=== PATIENT | female | born 1985 | race Caucasian/White ===

== ENCOUNTER 2022-12-21 17:08 | Emergency (ER) | payer OTHER, SELFPAY ==
[2022-12-21] VITALS (9 sets, daily range): BP systolic 100–129; BP diastolic 55–81; PULSE 72–105; RESP 13–24; TEMP 36.9; O2SAT 95–99; BMI 23.9
--- NOTE | 2022-12-21 17:41 | DI.RAD.S_ITS ---
PROCEDURE: XR CHEST 1V INDICATIONS: suspected sepsis TECHNIQUE: One view of the chest was acquired. COMPARISON: None. FINDINGS: Surgical changes and devices: None. Lungs and pleura: Lungs are clear. No pleural effusions or pneumothorax. Mediastinum: Mediastinal contours appear normal. Heart size is normal. Bones and chest wall: No suspicious bony lesions. Overlying soft tissues appear unremarkable. IMPRESSION: No acute cardiopulmonary pathology. Dictated by: Checo Tellez M.D. on 12/21/2022 at 18:20 Approved by: Checo Tellez M.D. on 12/21/2022 at 18:20
[2022-12-21] MEDS: SODIUM CHLORIDE 0.9% 1,000 ML 1000 ML IV (17:49)
[2022-12-21 17:52] LABS: Add Manual Diff / Slide Review NO; Basophils Absolute Auto 200 /uL (0-100); Basophils Percent Auto 1.4 % (0-2); Eosinophils Absolute Auto 100 /uL (0-450); Eosinophils Percent Auto 0.6 % (2-4); Hematocrit 39.6 % (36-46); Hemoglobin 13.7 g/dL (12.0-16.0); INR 1.1 (0.9-1.3); Lymphocytes Absolute Auto 800 /uL (1100-4500); Lymphocytes Percent Auto 6.1 % (25-40); Mean Corpuscular HGB Conc 34.5 % (30-36); Mean Corpuscular Hemoglobin 29.6 PG (26-34); Mean Corpuscular Volume 85.8 fL (80-100); Monocytes Absolute Auto 1000 /uL (0-900); Monocytes Percent Auto 7.3 % (3-14); Neutrophils Absolute Auto 11200 /uL (1500-7000); Neutrophils Percent Auto 84.6 % (50-75); Platelet Count 215 X10^3/uL (150-400); Prothrombin Time 12.3 SECONDS (10.1-12.7); Red Blood Cell Count 4.62 X10^6/uL (4.0-5.2); Red Cell Distribution Width 12.9 % (11.6-14.8); White Blood Cell Count 13.2 X10^3/uL (4.5-11.0)
[2022-12-21 17:54] LABS: PTT Partial Thromboplastin Tim 31 SECONDS (26-36)
[2022-12-21 17:57] LABS: Alanine Aminotransferase 20 IU/L (<35); Albumin 4.6 g/dL (3.5-5.0); Albumin Globulin Ratio 1.4 (1.0-2.8); Alkaline Phosphatase 59 U/L (38-126); Aspartate Aminotransferase 22 IU/L (14-36); BUN Creatinine Ratio 18.6 (6-22); Blood Urea Nitrogen 11 mg/dL (7-17); Calcium 9.5 mg/dL (8.4-10.2); Carbon Dioxide 26 mmol/L (22-32); Chloride 102 mmol/L (98-107); Estimated Glomerular Filt Rate > 60 mL/min (>60); Globulin 3.3 g/dL (1.7-4.1); Glucose 109 mg/dL (70-100); HEMOLYSIS < 15 (0-50); Lipase 32 U/L (23-300); Potassium 3.8 mmol/L (3.4-5.1); Sodium 137 mmol/L (137-145); Total Protein 7.9 g/dL (6.3-8.2)
[2022-12-21 18:13] LABS: Procalcitonin < 0.03 ng/mL (<0.5)
--- NOTE | 2022-12-21 18:38 | ED.GENADULT ---
HPI - General Adult General Chief complaint: Abdominal Pain Stated complaint: ABD PAIN Time Seen by Provider: 12/21/22 18:10 Source: patient Mode of arrival: Ambulatory History of Present Illness HPI narrative: Otherwise healthy 37-year-old woman who presents with 48 hours of left lower quadrant/flank pain getting persistently worse to the point that she is having trouble standing straight. Low-grade fevers today, no vaginal discharge, normal bowel movement this morning. She is not having dysuria frequency or urgency has not noted hematuria. There is no vaginal discharge. Last menstrual period was a week ago and her has a vasectomy. She is never had similar pain. She is not vomiting there is no upper abdominal pain, shortness is breath and no nausea. Related Data Previous Rx's Medication Instructions Recorded amoxicillin 875 mg-potassium 1 tab PO BID #20 tabs 12/21/22 clavulanate 125 mg tablet oxycodone-acetaminophen 5 mg-325 1 tab PO Q6H PRN pain #10 tabs 12/21/22 mg tablet Allergies Allergy/AdvReac Type Severity Reaction Status Date / Time Sulfa (Sulfonamide Allergy Intermediate Hives Verified 12/21/22 17:40 Antibiotics) Review of Systems Review of Systems Narrative: Pertinent positive and negative findings as per HPI Patient History Social History Smoking Status: Never smoker Smoking Status: Never smoker alcohol intake frequency: a few times a month Substance Use Type: marijuana Exam Initial Vital Signs Initial Vital Signs: Vital Signs Temperature 98.5 F 12/21/22 17:15 Pulse Rate 105 H 12/21/22 17:15 Respiratory Rate 18 12/21/22 17:15 Blood Pressure 129/81 12/21/22 17:15 Pulse Oximetry 99 12/21/22 17:15 Oxygen Delivery Method Room Air 12/21/22 17:15 General: Healthy appearing, in significant distress secondary to pain. Able to give a complete and coherent history. Well-nourished well-developed HEENT: Moist mucous membranes, normal sclera with reactive pupils, Respiratory: Lungs are clear to auscultation, no wheezing no rales no rhonchi. Full and symmetrical air movement Cardiac: Regular rate and rhythm no murmurs no bruits Abdomen: Soft, tender LLQ into L flank without rebound. Genital: No vaginal discharge, cervical motion tenderness or adnexal tenderness. Pain is clearly more lateral to adnexa on the left and likely either bowel or kidney. Skin: Warm and dry, no rashes Neurologic: Grossly neurologically intact with no obvious asymmetries or abnormalities Extremities: No trauma, well perfused Psych: Cooperative, appropriate insight and affect Course Orders Ordered: ED Orders 12/21/22 17:28 Blood Culture Stat COVID19 -Nasal RAPID Stat Complete Blood Count AUTO DIFF Stat Comprehensive Metabolic Panel Stat Lactate (Lactic Acid) Stat Lipase Stat PTT Partial Thromboplastin Nate Stat Procalcitonin Stat Prothrombin Time INR Stat 12/21/22 17:41 XR chest 1V Stat RT Consult Eval and Treat NOW 12/21/22 18:45 CT abdomen pelvis w con Stat Hydromorphone HCl (Hydromorphone 0.5 Mg Inj) 0.5 mg IV Q15MIN PRN PRN Reason: Pain, Last Admin: 12/21/22 19:10 Dose: 0.5 mg Documented By: ROHIT Ondansetron HCl (Ondansetron 4 Mg Odt) 4 mg PO NOW PRN PRN Reason: Nausea And Vomiting Ondansetron HCl (Ondansetron 4 Mg/2 Ml Inj) 4 mg IV NOW PRN PRN Reason: Nausea And Vomiting Discontinued Medications Sodium Chloride (Normal Saline 0.9%) 1,000 mls @ 1,000 mls/hr IV BOLUS ONE Stop: 12/21/22 18:39 Last Infusion: 12/21/22 18:49 Dose: 0 mls/hr Documented By: Admin: 12/21/22 17:49 Dose: 1,000 mls/hr Documented By: RENETTA Ondansetron HCl (Ondansetron 4 Mg/2 Ml Inj) 4 mg IV NOW ONE Stop: 12/21/22 18:46 Last Admin: 12/21/22 19:10 Dose: 4 mg Documented By: ROHIT Vital Signs Vital signs: Vital Signs - 8 hr 12/21/22 17:15 12/21/22 18:50 12/21/22 18:51 Temperature 98.5 F Pulse Rate 105 H 82 77 Respiratory Rate 18 14 Blood Pressure 129/81 113/60 Pulse Oximetry 99 97 Oxygen Delivery Method Room Air 12/21/22 18:51 12/21/22 19:40 12/21/22 19:07 Temperature Pulse Rate 88 74 Respiratory Rate 18 Blood Pressure 113/60 117/75 Pulse Oximetry 97 98 Oxygen Delivery Method 12/21/22 19:30 12/21/22 19:39 12/21/22 19:39 Temperature Pulse Rate 77 84 Respiratory Rate 24 21 Blood Pressure 117/75 Pulse Oximetry 95 97 Oxygen Delivery Method 12/21/22 20:00 12/21/22 20:00 Temperature Pulse Rate 73 Respiratory Rate 13 Blood Pressure 100/55 L Pulse Oximetry 96 Oxygen Delivery Method Medical Decision Making Lab Data 12/21/22 17:28 12/21/22 17:28 Labs: Lab Results 12/21/22 12/21/22 12/21/22 Range/Units 17:28 17:28 17:28 WBC 13.2 H (4.5-11.0) X10^3/uL RBC 4.62 (4.0-5.2) X10^6/uL Hgb 13.7 (12.0-16.0) g/dL Hct 39.6 (36-46) % MCV 85.8 (80-100) fL MCH 29.6 (26-34) PG MCHC 34.5 (30-36) % RDW 12.9 (11.6-14.8) % Plt Count 215 (150-400) X10^3/uL Neut % (Auto) 84.6 H (50-75) % Lymph % (Auto) 6.1 L (25-40) % Cecil % (Auto) 7.3 (3-14) % Eos % (Auto) 0.6 L (2-4) % Baso % (Auto) 1.4 (0-2) % Neut # (Auto) 79615 H (3602-7447) /uL Lymph # (Auto) 800 L (4235-6167) /uL Cecil # (Auto) 1000 H (0-900) /uL Eos # (Auto) 100 (0-450) /uL Baso # (Auto) 200 H (0-100) /uL PT 12.3 (10.1-12.7) SECONDS INR 1.1 (0.9-1.3) APTT 31 (26-36) SECONDS Sodium 137 (137-145) mmol/L Potassium 3.8 (3.4-5.1) mmol/L Chloride 102 (98-107) mmol/L Carbon Dioxide 26 (22-32) mmol/L BUN 11 (7-17) mg/dL Creatinine 0.59 (0.52-1.04) mg/dL Estimated GFR > 60 (>60) mL/min BUN/Creatinine Ratio 18.6 (6-22) Glucose 109 H (70-100) mg/dL Lactate (0.7-2.1) mmol/L Calcium 9.5 (8.4-10.2) mg/dL Total Bilirubin 1.0 (0.2-1.3) mg/dL AST 22 (14-36) IU/L ALT 20 (<35) IU/L Alkaline Phosphatase 59 (38-126) U/L Total Protein 7.9 (6.3-8.2) g/dL Albumin 4.6 (3.5-5.0) g/dL Globulin 3.3 (1.7-4.1) g/dL Albumin/Globulin Ratio 1.4 (1.0-2.8) Lipase 32 (23-300) U/L Procalcitonin < 0.03 (<0.5) ng/mL SARS-CoV-2 (PCR) (Negative) 12/21/22 12/21/22 Range/Units 17:28 17:28 WBC (4.5-11.0) X10^3/uL RBC (4.0-5.2) X10^6/uL Hgb (12.0-16.0) g/dL Hct (36-46) % MCV (80-100) fL MCH (26-34) PG MCHC (30-36) % RDW (11.6-14.8) % Plt Count (150-400) X10^3/uL Neut % (Auto) (50-75) % Lymph % (Auto) (25-40) % Cecil % (Auto) (3-14) % Eos % (Auto) (2-4) % Baso % (Auto) (0-2) % Neut # (Auto) (9812-1813) /uL Lymph # (Auto) (5328-0242) /uL Cecil # (Auto) (0-900) /uL Eos # (Auto) (0-450) /uL Baso # (Auto) (0-100) /uL PT (10.1-12.7) SECONDS INR (0.9-1.3) APTT (26-36) SECONDS Sodium (137-145) mmol/L Potassium (3.4-5.1) mmol/L Chloride (98-107) mmol/L Carbon Dioxide (22-32) mmol/L BUN (7-17) mg/dL Creatinine (0.52-1.04) mg/dL Estimated GFR (>60) mL/min BUN/Creatinine Ratio (6-22) Glucose (70-100) mg/dL Lactate 1.0 (0.7-2.1) mmol/L Calcium (8.4-10.2) mg/dL Total Bilirubin (0.2-1.3) mg/dL AST (14-36) IU/L ALT (<35) IU/L Alkaline Phosphatase (38-126) U/L Total Protein (6.3-8.2) g/dL Albumin (3.5-5.0) g/dL Globulin (1.7-4.1) g/dL Albumin/Globulin Ratio (1.0-2.8) Lipase (23-300) U/L Procalcitonin (<0.5) ng/mL SARS-CoV-2 (PCR) Negative (Negative) Point of Care Testing Test Results Negative Urine Dip Bedside Urine Glucose Negative Bedside Urine Bilirubin - Negative Bedside Urine Ketone +/- 5 Urine Specific [place] 1.010 Bedside Urine Occult Blood - Negative Bedside Urine pH 8 Bedside Urine Protein - Negative Bedside Urine Urobilinogen - Negative Bedside Urine Nitrite - Negative Bedside Urine Leukocytes - Negative Esterase Point of care testing: Point of Care Testing Test Results Negative Urine Dip Bedside Urine Glucose Negative Bedside Urine Bilirubin - Negative Bedside Urine Ketone +/- 5 Urine Specific [place] 1.010 Bedside Urine Occult Blood - Negative Bedside Urine pH 8 Bedside Urine Protein - Negative Bedside Urine Urobilinogen - Negative Bedside Urine Nitrite - Negative Bedside Urine Leukocytes - Negative Esterase [facility] Narrative Medical decision making narrative: CC: 48 hours of right lower quadrant pain Data collected from: patient, Differential considered: Diverticulitis, pyelonephritis, kidney stone, ovarian torsion, pelvic inflammatory disease Exam documented above, pertinent findings include: Severe left lower quadrant pain that does not appear to be pelvic pain or adnexal pain. No rebound or guarding. Lab Test results independently reviewed as above. Pertinent findings: CBC shows mild leukocytosis at 13.2 with left shift. No significant anemia Chemistries are reassuring with no acute electrolyte abnormality Procalcitonin is within normal limits Lipase is not elevated Urine test is negative Urine point of care testing is unremarkable Imaging studies independently reviewed: Chest x-ray is unremarkable CT scan suggest acute diverticulitis with no perforation or abscess. No renal stones, pyelonephritis. She has an incidentally noted hepatic cyst Treatments: Parenteral fluids, narcotics and antiemetics. Oral Augmentin is started in the emergency department Re-evaluations: Patient is re-evaluated after the CT scan and pain medication. She is feeling significantly improved. Clearly does not have an acute surgical abdomen Discussion: 37-year-old woman with acute diverticulitis without abscess or complication. No evidence of sepsis. She is able to eat and drink and will be safe for discharge home with Augmentin for 10 days. We talked about the importance of avoiding constipation with diverticulitis particularly in light of the fact that I am going to send her home with some Percocet to help pain control. Reviewed signs and symptoms of worsening issues and she is safe for discharge at this time. Discharge Plan Departure Patient Disposition: Home Clinical Impression: Diverticulitis Instructions: Diverticulitis Activity Restrictions/Additional Instructions: Thank you for coming in today Your workup shows you have acute diverticulitis causing your left lower abdominal pain. There is no evidence of sepsis, kidney stones, kidney infection, uterine or ovary abnormalities. Your CT scan also showed a benign cyst in your liver. It is nothing that you need to worry about, it is common to find small cysts and such with CT scanning. For the acute diverticulitis I am going to have you complete a 10 day course of Augmentin. Prescriptions [facility] [place] I am also going to give you a prescription for Percocet to use for pain control over the 1st couple of days. Percocet is a narcotic, can be addictive and will cause constipation. Constipation will make diverticulitis worse so it is important that you use additional magnesium, other stool softener and drink plenty of water to avoid constipation issues. If you find that you are getting worse or develop any new symptoms, please feel free to return to the emergency department for further evaluation. Prescriptions: New oxycodone-acetaminophen 5-325 mg tablet 1 tab PO Q6H PRN (Reason: pain) Qty: 10 0RF amoxicillin-pot clavulanate 875-125 mg tablet 1 tab PO BID Qty: 20 0RF Stand Alone Forms: Patient Portal/API
--- NOTE | 2022-12-21 18:45 | DI.CT.S_ITS ---
PROCEDURE: CT ABDOMEN PELVIS W CON INDICATIONS: LLQ abd pain TECHNIQUE: After the administration of intravenous contrast, axial sections acquired from the lung bases to the pubic symphysis. Coronal and sagittal reformats were performed. For radiation dose reduction, the following was used: automated exposure control, adjustment of mA and/or kV according to patient size. COMPARISON: None. FINDINGS: Image quality: Excellent. Lung bases: Unremarkable. Heart: No significant findings. ABDOMEN: Liver: 1.3 x 0.7 cm oval hypodensity involving posterior segment of right hepatic lobe series 2, image 24 likely represent benign process such as hepatic cyst. Gallbladder: Gallbladder is distended, no gallstones or gallbladder wall thickening. Biliary ducts: Unremarkable. Pancreas: Unremarkable. Spleen: Unremarkable. Adrenal Glands: Unremarkable. Kidneys and Ureters: Unremarkable. Stomach and Bowel: There is no bowel obstruction. No gastric or small bowel wall thickening. Significant mid to distal descending colon wall thickening is seen with pericolonic fat stranding. Colonic diverticulosis is seen. No abscess collection. No other area of abnormal colonic wall thickening. Peritoneum: No abnormal intraperitoneal fluid. No free air. Ventral Wall: No hernias. Abdominal Nodes: No retroperitoneal or mesenteric adenopathy by size criteria. Vessels: Aorta and inferior vena cava are normal in size. PELVIS: Pelvic Organs: Unremarkable. Bladder: Unremarkable. Pelvic Nodes: No enlarged lymph nodes. Miscellaneous: No hernias are seen. Bones: No suspicious bony lesions. No acute vertebral body compression fracture. IMPRESSION: 1. Finding is consistent with acute diverticulitis involving mid to distal descending colon. No signs of perforation. No abscess collection. No free fluid or free air. No bowel obstruction. 2. No obstructing renal stones or hydronephrosis. 3. Incidentally noted of hypodensity involving right hepatic lobe and likely represent benign process such as hepatic cyst or hemangioma. Dictated by: Checo Tellez M.D. on 12/21/2022 at 19:25 Approved by: Checo Tellez M.D. on 12/21/2022 at 19:28
[2022-12-21 18:53] LABS: COVID19 -Nasal RAPID Negative (Negative)
[2022-12-21] MEDS: HYDROMORPHONE 0.5 MG INJ IV (19:10)
[2022-12-21] MEDS: ONDANSETRON 4 MG/2 ML INJ IV (19:10)
[2022-12-21] MEDS: AMOXICILLIN/CLAV 875/125 MG 1 TAB PO (20:42)
[2022-12-21] MEDS: OXYCODONE/APAP 5/325 PREPACK 1 BOTTLE MISC (20:43)
== END 2022-12-21 20:51 | disposition home or self-care (01) ==
PROVIDERS: Emergency Medicine; Emergency Provider Emergency Medicine
DX: K57.92 Diverticulitis of intestine, part unspecified, without perforation or abscess without bleeding (principal); Z20.822 Contact with and (suspected) exposure to COVID-19
CPT/HCPCS: 36415; 71045; 74177; 80053; 81003; 81025; 83605; 83690; 84145; 85025; 85610; 85730; 87040; 87635; 96361; 96374; 96375; 99284; C9803; J1170; J2405; Q9967

== ENCOUNTER 2024-01-15 00:08 | Emergency (ER) | payer OTHER, SELFPAY ==
[2024-01-15 00:12] VITALS: BP 136/91; PULSE 82; RESP 16; TEMP 36.6; O2SAT 98; BMI 24.9
--- NOTE | 2024-01-15 00:56 | ED_ITS ---
HPI - Abdominal Pain General Chief Complaint: Abdominal Pain Stated Complaint: rt side abd pain Time Seen by Provider: 01/15/24 00:13 Source: patient Mode of arrival: Family Vehicle History of Present Illness HPI narrative: 38-year-old female without history of prior abdominopelvic surgeries, remote history of upper endoscopy with no specific diagnosis recalled, intermittently taking antacid medications, now with 2 months duration intermittent right-sided abdominal pain, recalls having ultrasound right upper quadrant done here couple of months ago that apparently was negative, now with recent days nausea vomiting in nonbloody emesis, also loose stools, and intermittent right-sided abdominal discomfort, not changed by food. Last bowel movement was loose earlier this evening. No recent exposure to oral IV antibiotics. No travel. No exposure to persons with similar symptoms. She is tried Tylenol and or Motrin for pain control, that it has not helping. She takes occasional Pepcid for heartburn symptoms, but feels these symptoms are different than her heartburn symptoms. Related Data Previous Rx's Medication Instructions Recorded amoxicillin 875 mg-potassium 1 tab PO BID #20 tabs 12/21/22 clavulanate 125 mg tablet oxycodone-acetaminophen 5 mg-325 1 tab PO Q6H PRN pain #10 tabs 12/21/22 mg tablet Allergies Allergy/AdvReac Type Severity Reaction Status Date / Time Sulfa (Sulfonamide Allergy Intermediate Hives Verified 12/21/22 17:40 Antibiotics) Review of Systems Review of Systems Narrative: see HPI Patient History Social History Smoking Status: Never smoker Smoking Status: Never smoker alcohol intake frequency: a few times a month Substance Use Type: marijuana Exam Narrative Exam Narrative: GENERAL: Well-developed patient, in mild distress. HEAD: Atraumatic. Normocephalic. EYES: Pupils equal round and reactive. Extraocular motions intact. No scleral icterus. No injection or drainage. ENT: Nose without bleeding, purulent drainage. Throat without erythema, tonsillar hypertrophy or exudate. Airway patent. NECK: Trachea midline. Non tender CARDIOVASCULAR: Regular rate and rhythm without murmurs, gallops, or rubs. RESPIRATORY: Clear to auscultation. Breath sounds equal bilaterally. No wheezes, rales, or rhonchi. GASTROINTESTINAL: Abdomen soft, non-tender, nondistended. EXTREMITIES: No edema or joint tenderness. BACK: Nontender without deformity or crepitance. No flank tenderness. NEURO: AOx3. Motor functions grossly nonfocal SKIN: No rash or erythema of visible areas Initial Vital Signs Initial Vital Signs: Vital Signs Temperature 98 F 01/15/24 00:12 Pulse Rate 82 01/15/24 00:12 Respiratory Rate 16 01/15/24 00:12 Blood Pressure 136/91 H 01/15/24 00:12 Pulse Oximetry 98 01/15/24 00:12 Oxygen Delivery Method Room Air 01/15/24 00:12 Course Orders Ordered: ED Orders 01/15/24 00:57 CT abdomen pelvis w con Stat 01/15/24 01:00 Complete Blood Count AUTO DIFF Stat Comprehensive Metabolic Panel Stat HCG Quantitative /Beta subunit Stat Lipase Stat Discontinued Medications Hydromorphone HCl (Hydromorphone 0.5 Mg Inj) 0.5 mg IV NOW ONE Stop: 01/15/24 01:34 Last Admin: 01/15/24 02:00 Dose: 0.5 mg Documented By: ROHIT Sodium Chloride (Normal Saline 0.9%) 1,000 mls @ 1,000 mls/hr IV BOLUS ONE Stop: 01/15/24 02:32 Last Admin: 01/15/24 02:00 Dose: 1,000 mls/hr Documented By: ROHIT Lactulose (Lactulose 20 Gm/30 Ml Solution) 20 gm PO NOW ONE Stop: 01/15/24 01:39 Last Admin: 01/15/24 02:00 Dose: Not Given Documented By: ROHIT Ondansetron HCl (Ondansetron 4 Mg/2 Ml Inj) 4 mg IV NOW ONE Stop: 01/15/24 01:34 Last Admin: 01/15/24 02:00 Dose: 4 mg Documented By: ROHIT Vital Signs Vital signs: Vital Signs - 8 hr 01/15/24 00:12 01/15/24 01:00 01/15/24 01:00 Temperature 98 F Pulse Rate 82 64 Respiratory Rate 16 18 Blood Pressure 136/91 H 112/81 Pulse Oximetry 98 100 Oxygen Delivery Method Room Air 01/15/24 01:13 01/15/24 01:13 01/15/24 01:30 Temperature Pulse Rate 66 Respiratory Rate Blood Pressure 123/84 125/75 Pulse Oximetry 100 Oxygen Delivery Method 01/15/24 01:30 01/15/24 02:00 01/15/24 02:00 Temperature Pulse Rate 70 67 Respiratory Rate 16 16 Blood Pressure 128/82 Pulse Oximetry 99 100 Oxygen Delivery Method 01/15/24 02:30 01/15/24 02:30 Temperature Pulse Rate 67 Respiratory Rate 16 Blood Pressure 129/75 Pulse Oximetry 99 Oxygen Delivery Method MDM - Abdominal Pain Lab Data Attestation: I reviewed the patient's lab results. 01/15/24 01:00 01/15/24 01:00 Labs: Lab Results 01/15/24 Range/Units 01:00 WBC 8.1 (4.5-11.0) X10^3/uL RBC 4.71 (4.0-5.2) X10^6/uL Hgb 14.1 (12.0-16.0) g/dL Hct 41.1 (36-46) % MCV 87.2 (80-100) fL MCH 29.9 (26-34) PG MCHC 34.3 (30-36) % RDW 12.6 (11.6-14.8) % Plt Count 257 (150-400) X10^3/uL Neut % (Auto) 73.8 (50-75) % Lymph % (Auto) 15.4 L (25-40) % [place] % (Auto) 7.3 (3-14) % Eos % (Auto) 3.1 (2-4) % Baso % (Auto) 0.4 (0-2) % Neut # (Auto) 6000 (7986-3796) /uL Lymph # (Auto) 1200 (8178-0598) /uL [place] # (Auto) 600 (0-900) /uL Eos # (Auto) 300 (0-450) /uL Baso # (Auto) 0 (0-100) /uL Sodium 139 (137-145) mmol/L Potassium 3.6 (3.4-5.1) mmol/L Chloride 104 (98-107) mmol/L Carbon Dioxide 27 (22-32) mmol/L BUN 11 (7-17) mg/dL Creatinine 0.80 (0.52-1.04) mg/dL Estimated GFR > 60 (>60) mL/min BUN/Creatinine Ratio 13.8 (6-22) Glucose 94 (70-100) mg/dL Calcium 9.3 (8.4-10.2) mg/dL Total Bilirubin 0.4 (0.2-1.3) mg/dL AST 24 (14-36) IU/L ALT 20 (<35) IU/L Alkaline Phosphatase 54 (38-126) U/L Total Protein 7.6 (6.3-8.2) g/dL Albumin 4.6 (3.5-5.0) g/dL Globulin 3.0 (1.7-4.1) g/dL Albumin/Globulin Ratio 1.5 (1.0-2.8) Lipase 90 (23-300) U/L HCG, Quant < 2.39 mIU/mL Point of care testing: Point of Care Testing Test Results Negative Urine Dip Bedside Urine Glucose Negative Bedside Urine Bilirubin - Negative Bedside Urine Ketone - Negative Urine Specific [place] 1.010 Bedside Urine Occult Blood - Negative Bedside Urine pH 6.0 Bedside Urine Protein - Negative Bedside Urine Urobilinogen - Negative Bedside Urine Nitrite - Negative Bedside Urine Leukocytes - Negative Esterase Imaging Data CT scan - abdomen/pelvis: Radiologist's Impression: [place] [address] CT Scan Report Signed Patient: Jossie Robles MR#: [id number] : 1985 Acct:[id number] Age/Sex: 38 / F Date of Service: 01/15/24 Loc: ED Accession Number: [id number] Procedure: CT abdomen pelvis w con Ordering Provider: Sajan Carrillo MD PROCEDURE: CT ABDOMEN PELVIS W CON INDICATIONS: R sided abdominal pain TECHNIQUE: After the administration of intravenous contrast, axial sections acquired from the lung bases to the pubic symphysis. Coronal and sagittal reformats were performed. For radiation dose reduction, the following was used: automated exposure control, adjustment of mA and/or kV according to patient size. COMPARISON: [facility], CT, CT ABDOMEN PELVIS W CON, 12/21/2022, 19:01. FINDINGS: Image quality: Diagnostic Lower chest: Basal mild atelectasis. Liver: Unchanged right lobe hypodensity, probably a cyst or hemangioma. Gallbladder and biliary system: Unremarkable, nondilated Pancreas: No ductal dilation Spleen: Nonenlarged Adrenals: No discrete nodules Kidneys: No solid mass or hydronephrosis There are a few pelvic calcifications adjacent to the UVJs, similar to prior, probably phleboliths. Vessels and lymph nodes: The main portal vein appears patent. Likely mixing artifact is seen in the SMV. No abdominal aortic aneurysm or pathologic lymph nodes by size criteria. Bowel and peritoneum: No evidence of small bowel obstruction. Colonic diverticula are seen. No pathologic ascites or drainable abscess. Questionable partially seen appendix. No significant inflammatory changes. Moderate fecal loading. Body wall: Tiny fat containing umbilical hernia Pelvis: Bladder is under distended not well evaluated. Prominent reproductive organs, probably physiologic on limited CT evaluation. Consider ultrasound if there is concern Bones: Unremarkable IMPRESSION: Moderate fecal loading. No small bowel obstruction. The appendix is questionably and only partially seen. No high-grade inflammatory changes at the expected location adjacent to the terminal ileum. Colonic diverticula, without evidence of acute inflammation. Other findings above. Dictated by: Ry White M.D. on 01/15/2024 at 1:20 Approved by: Ry hWite M.D. on 01/15/2024 at 1:25 MDM Narrative Medical decision making narrative: 38-year-old female with intermittent right-sided abdominal pain, remote prior endoscopy without specific diagnosis, intermittently taking any NSAIDs and Tylenol, intermittently taking Pepcid antacid, now with loose stools and right- sided abdominal discomfort last couple of days. Afebrile, sirs screen negative. No specific tenderness right-sided more so than left or central or upper versus lower. Nondistended. Labs pending. 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 CBC unremarkable, CMP normal renal function, normal LFTs, also lipase normal. Urine dip negative. Urine test negative. CT abdomen and pelvis imaging ordered. CT abdomen and pelvis shows moderate fecal load, no acute process definitely mentioned, appendix was partially visualized but no periappendiceal inflammatory changes. Intermittent symptoms for weeks would be consistent with constipation as possible cause, prior right upper quadrant ultrasound reportedly negative. Consider trial of lactulose, patient prefers to have MiraLax that she is used in the past [id number]. Advised recheck if symptoms not improved Wednesday after oral laxative therapy trial, return precautions discussed, stable, discharged home Discharge Plan Departure Patient Disposition: Home Clinical Impression: Abdominal pain, Constipation, Nausea vomiting and diarrhea Activity Restrictions/Additional Instructions: Intermittent nausea vomiting diarrhea, intermittent right-sided abdominal pain, prior abdominal ultrasound right upper quadrant reportedly negative, loose stooling and vomiting, no black or red stools. No fever on triage. Blood work and urinalysis dip testing were negative today. Urine test was negative. CT abdomen and pelvis imaging was done, appendix was partially visualized but no obvious inflammatory change in that area, though there was moderate stool described. No mention of any renal stones or ureteral stones. It is possible to have your symptoms of loose stools and in fact nausea and vomiting due to constipation, with intermittent abdominal discomfort if it were predominantly right-sided. There could be some other process as well. Trial of MiraLax oral laxative for now. Consider lower endoscopy, contact information given for local General surgery. Consider Gastroenterology consultation, reportedly this is in the works in follow up. Recheck symptoms if persisting early next week. Return to this/nearest emergency department for any change worsening symptoms or any concerns prior Prescriptions: No Action oxycodone-acetaminophen 5-325 mg tablet 1 tab PO Q6H PRN (Reason: pain) Qty: 10 0RF amoxicillin-pot clavulanate 875-125 mg tablet 1 tab PO BID Qty: 20 0RF Stand Alone Forms: Patient Portal/API
[2024-01-15 01:00] VITALS: BP 112/81; PULSE 64; RESP 18; O2SAT 100
[2024-01-15 01:08] LABS: Add Manual Diff / Slide Review NO; Basophils Absolute Auto 0 /uL (0-100); Basophils Percent Auto 0.4 % (0-2); Eosinophils Absolute Auto 300 /uL (0-450); Eosinophils Percent Auto 3.1 % (2-4); Hematocrit 41.1 % (36-46); Hemoglobin 14.1 g/dL (12.0-16.0); Lymphocytes Absolute Auto 1200 /uL (1100-4500); Lymphocytes Percent Auto 15.4 % (25-40); Mean Corpuscular HGB Conc 34.3 % (30-36); Mean Corpuscular Hemoglobin 29.9 PG (26-34); Mean Corpuscular Volume 87.2 fL (80-100); Monocytes Absolute Auto 600 /uL (0-900); Monocytes Percent Auto 7.3 % (3-14); Neutrophils Absolute Auto 6000 /uL (1500-7000); Neutrophils Percent Auto 73.8 % (50-75); Platelet Count 257 X10^3/uL (150-400); Red Blood Cell Count 4.71 X10^6/uL (4.0-5.2); Red Cell Distribution Width 12.6 % (11.6-14.8); White Blood Cell Count 8.1 X10^3/uL (4.5-11.0)
[2024-01-15 01:13] VITALS: BP 123/84; PULSE 66; O2SAT 100
[2024-01-15 01:25] LABS: Alanine Aminotransferase 20 IU/L (<35); Albumin 4.6 g/dL (3.5-5.0); Albumin Globulin Ratio 1.5 (1.0-2.8); Alkaline Phosphatase 54 U/L (38-126); Aspartate Aminotransferase 24 IU/L (14-36); BUN Creatinine Ratio 13.8 (6-22); Bilirubin Total 0.4 mg/dL (0.2-1.3); Blood Urea Nitrogen 11 mg/dL (7-17); Calcium 9.3 mg/dL (8.4-10.2); Carbon Dioxide 27 mmol/L (22-32); Chloride 104 mmol/L (98-107); Estimated Glomerular Filt Rate > 60 mL/min (>60); Glucose 94 mg/dL (70-100); HEMOLYSIS < 15 (0-50); Lipase 90 U/L (23-300); Potassium 3.6 mmol/L (3.4-5.1); Sodium 139 mmol/L (137-145); Total Protein 7.6 g/dL (6.3-8.2)
[2024-01-15 01:30] VITALS: BP 125/75; PULSE 70; RESP 16; O2SAT 99
[2024-01-15 02:00] VITALS: BP 128/82; PULSE 67; RESP 16; O2SAT 100
[2024-01-15] MEDS: ONDANSETRON 4 MG/2 ML INJ IV (02:00)
[2024-01-15] MEDS: HYDROMORPHONE 0.5 MG INJ IV (02:00)
[2024-01-15] MEDS: SODIUM CHLORIDE 0.9% 1,000 ML 1000 ML IV (02:00)
[2024-01-15 02:22] LABS: HCG Quantitative /Beta subunit < 2.39 mIU/mL
[2024-01-15 02:30] VITALS: BP 129/75; PULSE 67; RESP 16; O2SAT 99
== END 2024-01-15 02:43 | disposition home or self-care (01) ==
PROVIDERS: Emergency Provider Emergency Medicine
DX: R10.9 Unspecified abdominal pain (principal); K59.00 Constipation, unspecified; R11.2 Nausea with vomiting, unspecified; R19.7 Diarrhea, unspecified
CPT/HCPCS: 36415; 74177; 80053; 81003; 81025; 83690; 84702; 85025; 96361; 96374; 96375; 99284; J1170; J2405; Q9967

== ENCOUNTER 2024-06-03 20:33 | Emergency (ER) | payer OTHER, SELFPAY ==
[2024-06-03 20:48] VITALS: BP 121/74; PULSE 103; RESP 18; TEMP 38.5; O2SAT 98; BMI 25.0
--- NOTE | 2024-06-03 20:53 | DI.RAD.S_ITS ---
PROCEDURE: XR CHEST 2V INDICATIONS: cough TECHNIQUE: 2 views of the chest were acquired. COMPARISON: [facility], CR, XR CHEST 1V, 12/21/2022, 17:56. FINDINGS: Surgical changes and devices: None. Lungs and pleura: No dense airspace disease or pleural effusions. Mediastinum: Normal heart size is unchanged Bones and chest wall: Unremarkable IMPRESSION: No acute radiographic abnormality. Dictated by: Ry White M.D. on 06/03/2024 at 21:15 Approved by: Ry White M.D. on 06/03/2024 at 21:15
[2024-06-03] MEDS: IBUPROFEN 400 MG TABLET PO (20:56)
[2024-06-03 21:06] VITALS: BP 125/83; PULSE 92; RESP 22; TEMP 37.4; O2SAT 97
[2024-06-03 21:30] VITALS: BP 119/77; PULSE 91; RESP 16; O2SAT 95
--- NOTE | 2024-06-03 21:39 | ED_ITS ---
HPI - URI/Sore Throat General Chief Complaint: Upper Respiratory Symptoms Stated Complaint: flu symptoms x 10days Time Seen by Provider: 06/03/24 21:39 Source: patient Mode of arrival: Ambulatory History of Present Illness HPI Narrative: 39-year-old female without any significant past medical history presents to the emergency department flu-like symptoms ongoing persistent for the past 10 days states it has been taking [id number] medication without any relief, states that she has been taking plenty of fluids but has been having persistent cough and is worried now that she is having some green sputum. She denies any other symptoms such as headache visual disturbances chest pain fever chills nausea vomiting abdominal pain or any other GI/ symptoms time. Related Data Previous Rx's Medication Instructions Recorded amoxicillin 875 mg-potassium 1 tab PO BID #20 tabs 12/21/22 clavulanate 125 mg tablet oxycodone-acetaminophen 5 mg-325 1 tab PO Q6H PRN pain #10 tabs 12/21/22 mg tablet albuterol sulfate 90 mcg/actuation 2 inh inhalation QID PRN shortness 06/03/24 breath activated powder inhaler of breath or wheezing #1 ea azithromycin 250 mg tablet 250 mg PO DAILY 4 days #4 tabs 06/03/24 methylprednisolone 4 mg tablets in See Rx Instructions PO .COMPLEX 06/03/24 a dose pack (Medrol (Elias)) #21 ea Allergies Allergy/AdvReac Type Severity Reaction Status Date / Time Sulfa (Sulfonamide Allergy Intermediate Hives Verified 12/21/22 17:40 Antibiotics) Review of Systems Review of Systems Narrative: General: Positive fever, chills, denies weight loss HEENT: Denies headache, eye drainage, eye irritation, head trauma, sore throat, voice change Cardiovascular: Denies any chest pain, palpitations, shortness of breath, tachycardia Respiratory: Positive cough, Denies any shortness of breath, wheeze, stridor GI/: Denies any abdominal pain, nausea, vomiting, diarrhea, bright red blood per rectum, melanotic stools, urinary frequency, urinary retention, dysuria, hematuria MSK: Positive myalgias, Denies any joint pain, swelling Skin: Denies any rashes, lesions, discoloration Neuro: Denies any headache, lightheadedness, dizziness, fainting, weakness Psych: Denies SI/HI Patient History Social History Smoking Status: Never smoker Smoking Status: Never smoker alcohol intake frequency: a few times a month Exam Narrative Exam Narrative: General: Cooperative, comfortable, well-developed, not in acute distress HEENT: Normocephalic, atraumatic, PERRLA, normal sclera, eyelids normal, Neck: Active full range of motion, atraumatic Chest: Normal to inspection, negative crepitus, no overlying erythema ecchymosis Respiratory: Positive cough, Normal respiratory effort, not in acute respirato ry distress, clear to auscultation bilaterally negative wheeze, tachypnea, rhonchi, rales Cardiology: Regular rate rhythm negative gallop, murmur, rubs GI/: Normal to inspection, soft, nonrigid, no tenderness to palpation, exam deferred MSK: Full range of active range of motion of all 4 extremities, atraumatic Skin: No rashes lesions noted Neuro: Alert awake oriented x3, moves all 4 extremities spontaneously, cranial nerves intact, able to answer all questions appropriately follows commands appropriately Psych: Cooperative, negative suicidal or homicidal ideations Initial Vital Signs Initial Vital Signs: Vital Signs Temperature 101.3 F H 06/03/24 20:48 Pulse Rate 103 H 06/03/24 20:48 Respiratory Rate 18 06/03/24 20:48 Blood Pressure 121/74 06/03/24 20:48 Pulse Oximetry 98 06/03/24 20:48 Oxygen Delivery Method Room Air 06/03/24 20:48 Course Orders Ordered: ED Orders 06/03/24 20:53 XR chest 2V Stat 06/03/24 20:55 Covid-19 + FLU A/B + RSV - PCR Stat Discontinued Medications Azithromycin (Azithromycin 250 Mg Tablet) 500 mg PO NOW ONE Stop: 06/03/24 22:26 Ibuprofen (Ibuprofen 400 Mg Tablet) 400 mg PO NOW ONE Stop: 06/03/24 20:53 Last Admin: 06/03/24 20:56 Dose: 400 mg Documented By: BRITTNI Vital Signs Vital signs: Vital Signs - 8 hr 06/03/24 20:48 06/03/24 21:06 06/03/24 21:30 Temperature 101.3 F H 99.4 F Pulse Rate 103 H 92 H Respiratory Rate 18 22 Blood Pressure 121/74 125/83 119/77 Pulse Oximetry 98 97 Oxygen Delivery Method Room Air Room Air 06/03/24 21:30 06/03/24 21:51 06/03/24 21:51 Temperature Pulse Rate 91 H 87 Respiratory Rate 16 16 Blood Pressure 109/55 L Pulse Oximetry 95 95 Oxygen Delivery Method Room Air Room Air MDM - URI/Sore Throat Differential Diagnosis Differential diagnosis: Likely other (COVID, flu, bronchitis, atypical pneumonia, pneumonia) Lab Data Labs: Lab Results 06/03/24 Range/Units 20:55 SARS-CoV-2 (PCR) Negative (Negative) Influenza A (RT-PCR) Flu a negative (NEGATIVE) Influenza B (RT-PCR) Flu b negative (NEGATIVE) RSV (PCR) Negative (Negative) Imaging Data Chest x-ray: Radiologist's Impression: [address] [address] XRay Report Signed Patient: Jossie Robles MR#: [id number] : 1985 Acct:[id number] Age/Sex: 39 / F Date of Service: 06/03/24 Loc: ED Accession Number: [id number] Procedure: XR chest 2V Ordering Provider: Darrell Luna D.O. PROCEDURE: XR CHEST 2V INDICATIONS: cough TECHNIQUE: 2 views of the chest were acquired. [facility] 17[facility]56. FINDINGS: Surgical changes and devices: None. Lungs and pleura: No dense airspace disease or pleural effusions. Mediastinum: Normal heart size is unchanged Bones and chest wall: Unremarkable IMPRESSION: No acute radiographic abnormality. [facility] Narrative Medical decision making narrative: Patient is a 39-year-old female without any significant past medical history comes in for flu-like symptoms which include myalgias cough sore throat fever chills ongoing persistent for the past 10 days. States that she has been able to control her fevers with medication however given prolonged symptoms decided come into the ED for further evaluation treatment. Patient was able to be defervesce tear after administration medication. X-ray did not show any pneumonia. Viral panel was negative, however given the fact patient with cough fever ongoing persistent for the past 10 days we will treat for atypical pneumonia as well as symptomatic treatment of bronchitis. First dose of antibiotics here will be sent home with a prescription of azithromycin. Instructed follow up with primary care in outpatient setting. Patient not requiring any supplemental oxygen, she verbalized understanding of being disch arged home and agrees to being discharged home with outpatient follow up Discharge Plan Departure Patient Disposition: Home Clinical Impression: Bronchitis Instructions: DI for Bronchiolitis Activity Restrictions/Additional Instructions: Please follow up with your primary care doctor Please read the discharge instructions sheet carefully and bring all papers to all doctor follow-up visits, as it may contain information that your doctor may want to see. Disease processes change and evolve, if your symptoms worsen or if you develop any new symptoms that are concerning to you please return for evaluation. Your evaluation today does not show any evidence of any life- threatening/serious illnesses requiring admission to the hospital or surgery. Please follow-up with your doctor for re-evaluation in approximately 1 day. Seek immediate medical attention for any worrisome symptoms. *If you do not have a primary care provider please contact the [facility] Resource line at [phone]. They will ask some questions about your medical history and help get you set up with a doctor in the community. Prescriptions: New azithromycin 250 mg tablet 250 mg PO DAILY 4 Days Qty: 4 0RF albuterol sulfate 90 mcg/actuation aerosol powdr breath activated 2 inh inhalation QID PRN (Reason: shortness of breath or wheezing) Qty: 1 0RF methylprednisolone [Medrol (Elias)] 4 mg tablets,dose pack See Rx Instructions .ROUTE .COMPLEX Qty: 21 0RF Rx Instructions: orally per package directions No Action oxycodone-acetaminophen 5-325 mg tablet 1 tab PO Q6H PRN (Reason: pain) Qty: 10 0RF amoxicillin-pot clavulanate 875-125 mg tablet 1 tab PO BID Qty: 20 0RF Referrals: No Bailey DO [Primary Care Provider] - Stand Alone Forms: Patient Portal/API/Survey
[2024-06-03 21:47] LABS: Influenza A - CEPHEID Flu A NEGATIVE (NEGATIVE); Influenza B - CEPHEID Flu B NEGATIVE (NEGATIVE); Respiratory Syncytial Virus Negative (Negative)
[2024-06-03 21:49] LABS: COVID-19 CEPHEID 4-PLEX PCR Negative (Negative)
[2024-06-03 21:51] VITALS: BP 109/55; PULSE 87; RESP 16; O2SAT 95
[2024-06-03] MEDS: AZITHROMYCIN 250 MG TABLET 500 MG PO (22:34)
== END 2024-06-03 22:35 | disposition home or self-care (01) ==
PROVIDERS: Emergency Provider Student in an Organized Health Care Education/Training Program; PCP Family Medicine
DX: J21.9 Acute bronchiolitis, unspecified (principal); Z88.2 Allergy status to sulfonamides; R50.9 Fever, unspecified
CPT/HCPCS: 0241U; 71046; 99283